=== PATIENT | female | born 1955 | race Caucasian/White ===

== ENCOUNTER 2018-03-02 10:34 | Emergency (ER) | payer MEDICARE, OTHER, SELFPAY ==
[2018-03-02 10:36] VITALS: BP 139/74; PULSE 90; RESP 11; TEMP 36.6; O2SAT 92; BMI 34.8
[2018-03-02] MEDS: Naloxone 2 MG/2 ML Syringe 1 MG IV (10:40)
--- NOTE | 2018-03-02 10:49 | ED.VISSUMM ---
- ER Visit Summary Date of Service: 03/02/18 Chief Complaint: Accidental overdose History of Present Illness: The patient is a 63 F brought by EMS from [facility] concerns for accidentally taken extra oxycodone this morning. Patient had a Since last night, she is on 10 mg oxycodone's for chronic back pain with previous surgeries. She takes it every 6 hours. Last night accidentally dropped her pills, reports may have taken extra dose of medication this morning, reports she was drowsy. Patient denies any recent illness of any cough nausea vomiting any urinary symptoms. No fevers. Denies any previous similar symptoms in the past. Denies any additional medications. She states her normal Zoloft, Lamictal for her back symptoms. Reported by nursing patient drowsy, answers questions. Physical Examination: General: Alert and oriented ?3, no acute distress. Mild somnolence, awakens and answers questions. HEENT: Normocephalic, atraumatic. Moist mucosa membranes. 2 mm equal and reactive pupils bilaterally. Neck: supple, nontender. Cardiovascular: Regular rate and rhythm, no murmurs Respiratory: Normal breath sounds, symmetric, no distress Abdomen: Soft, nontender, nondistended Extremities: Nontender, no edema, pulses intact ?4 Neuro: no focal neurological deficits. Test Results: [] Emergency Department Course and Treatment: Patient given 1 mg Narcan. During evaluation she was becoming more awake and, pupils more dilated to 4 mm. Alert and oriented x3. She will be monitored. Multiple re-evaluations, patient stable. No decompensation. Discussed likely accidental extra ingestion of her opiate medications. She will monitor her pills. She will follow-up as an outpatient. Treatment Plan: [] Disposition: Discharge Impression: Accidental overdose of opiate This note was generated with [employer] dictation software. It may contain incorrect words, spelling, and punctuation that were not noted in review of the chart prior to signing ED Disposition - Plan for ED Patient: Disposition: Home or Assisted Living Chief Complaint: Overdose Diagnosis: Accidental overdose Instructions: ED Overdose Accidental Additional Instructions: Be careful of your oxycodone medications. Take it as prescribed. Follow-up with your doctor.
--- NOTE | 2018-03-02 10:53 | ED.DCSUM_ITS ---
- ER Visit Summary Date of Service: 03/02/18 Chief Complaint: Accidental overdose History of Present Illness: The patient is a 63 F brought by EMS from [facility] concerns for accidentally taken extra oxycodone this morning. Patient had a Since last night, she is on 10 mg oxycodone's for chronic back pain with previous surgeries. She takes it every 6 hours. Last night accidentally dropped her pills, reports may have taken extra dose of medication this morning, reports she was drowsy. Patient denies any recent illness of any cough nausea vomiting any urinary symptoms. No fevers. Denies any previous similar symptoms in the past. Denies any additional medications. She states her normal Zoloft, Lamictal for her back symptoms. Reported by nursing patient drowsy, answers questions. Physical Examination: General: Alert and oriented ?3, no acute distress. Mild somnolence, awakens and answers questions. HEENT: Normocephalic, atraumatic. Moist mucosa membranes. 2 mm equal and reactive pupils bilaterally. Neck: supple, nontender. Cardiovascular: Regular rate and rhythm, no murmurs Respiratory: Normal breath sounds, symmetric, no distress Abdomen: Soft, nontender, nondistended Extremities: Nontender, no edema, pulses intact ?4 Neuro: no focal neurological deficits. Test Results: [] Emergency Department Course and Treatment: Patient given 1 mg Narcan. During evaluation she was becoming more awake and, pupils more dilated to 4 mm. Alert and oriented x3. She will be monitored. Multiple re-evaluations, patient stable. No decompensation. Discussed likely accidental extra ingestion of her opiate medications. She will monitor her pills. She will follow-up as an outpatient. Treatment Plan: [] Disposition: Discharge Impression: Accidental overdose of opiate This note was generated with [employer] dictation software. It may contain incorrect words, spelling, and punctuation that were not noted in review of the chart parker or to signing ED Disposition - Plan for ED Patient: Disposition: Home or Assisted Living Chief Complaint: Overdose Diagnosis: Accidental overdose Instructions: ED Overdose Accidental Additional Instructions: Be careful of your oxycodone medications. Take it as prescribed. Follow-up with your doctor.
[2018-03-02 11:24] VITALS: BP 148/77; PULSE 80; RESP 19; O2SAT 97
[2018-03-02 12:00] VITALS: BP 136/73; PULSE 80; RESP 18; O2SAT 95
[2018-03-02 12:42] VITALS: BP 134/80; PULSE 87; RESP 16; O2SAT 97
== END 2018-03-02 12:44 | disposition home or self-care (01) ==
LOC: ED 11:57
PROVIDERS: Emergency Provider Emergency Medicine
DX: T40.601A Poisoning by unspecified narcotics, accidental (unintentional), initial encounter (principal); R40.0 Somnolence; M54.9 Dorsalgia, unspecified; G89.29 Other chronic pain; Z79.891 Long term (current) use of opiate analgesic; Y92.009 Unspecified place in unspecified non-institutional (private) residence as the place of occurrence of the external cause
CPT/HCPCS: 96374; 99285; J7030; A4216